=== PATIENT | male | born 1985 | race African-American/Black ===

== ENCOUNTER 2017-06-13 | Emergency (ER) | payer SELFPAY ==
--- NOTE | 2017-06-13 09:02 | ER ---
Nurse's Notes [facility] Name: Mejia Butler Age: 32 yrs Sex: Male : 1985 Arrival Date: 06/13/2017 Time: 08:26 Bed 15 Private MD: Diagnosis: Dental caries Presentation: 06/13 08:32 Presenting complaint: Patient states: has had bad toothache on left lower area X 3 iw days, just moved to [place], has not set up dentist in area, was supposed to have tooth pulled before he moved here. Transition of care: patient was not received from another setting of care. Onset of symptoms was June 10, 2017. Care prior to arrival: None. 08:32 Method Of Arrival: Ambulatory iw 08:32 Acuity: JUAN 4 iw Triage Assessment: 08:39 General: Appears in no apparent distress. uncomfortable, Behavior is calm, cooperative, hj appropriate for age. Pain: Complains of pain in tooth. EENT: Reports pain in L lower tooth. Historical: - Allergies: 08:33 NKA; iw - Home Meds: 08:33 None [Active]; iw - PMHx: 08:33 None; iw - PSHx: 08:33 None; iw - Immunization history:: Adult Immunizations not up to date. - Social history:: Smoking status: Patient uses tobacco products, smokes one-half pack cigarettes per day. Screenin:39 Abuse screen: Denies threats or abuse. Denies injuries from another. Nutritional hj screening: No deficits noted. Tuberculosis screening: No symptoms or risk factors identified. Fall Risk None identified. Vital Signs: 08:33 BP 119 / 73; Pulse 83; Resp 16; Temp 98.2; Pulse Ox 99% on R/A; Weight 77.11 kg; Height iw 5 ft. 7 in. (170.18 cm); Pain 10/10; 08:33 Body Mass Index 26.63 (77.11 kg, 170.18 cm) iw ED Course: 08:26 Patient arrived in ED. rg4 08:33 Triage completed. iw 08:33 Arm band placed on. iw 08:34 Rodrick Garsia NP is PHCP. pm1 08:34 Jose Antonio Monreal MD is Attending Physician. pm1 08:38 Jerry Newman, SUSHANT is Primary Nurse. hj 08:39 Patient has correct armband on for positive identification. Placed in gown. Bed in low hj position. Call light in reach. Side rails up X 1. 09:13 No provider procedures requiring assistance completed. Patient did not have IV access hj during this emergency room visit. Administered Medications: No medications were administered Outcome: 09:02 Discharge ordered by . pm1 09:14 Discharged to home ambulatory. hj 09:14 Condition: stable 09:14 Discharge instructions given to patient, Instructed on discharge instructions, follow up and referral plans. medication usage, Demonstrated understanding of instructions, follow-up care, medications, Prescriptions given X 2. 09:15 Patient left the ED. hj Signatures: Anushka Phillips RN RN iw Jerry Newman RN RN hj Marinas, Patrick, TEN [employer]ER[employer] TEACHER pm1 Keiko Linn rg4
--- NOTE | 2017-06-13 09:02 | EDPHYS ---
Physician Documentation [facility] Name: Mejia Butler Age: 32 yrs Sex: Male : 1985 Arrival Date: 06/13/2017 Time: 08:26 Bed 15 Private MD: ED Physician Jose Antonio Monreal HPI: 06/13 08:55 This 32 yrs old Black Male presents to ER via Ambulatory with complaints of Toothache. pm1 08:55 The patient presents with broken tooth/teeth, pain. The problem is located in the lower pm1 right third molar. Onset: The symptoms/episode began/occurred tooth has been fractured with cavities for 1 year. Pain for the last three days. Duration: The symptoms are continuous. Modifying factors: The symptoms are alleviated by nothing, the symptoms are aggravated by chewing, food. Associated signs and symptoms: Pertinent positives: pain, Pertinent negatives: fever, inability to eat, nausea, redness in area, swelling, vomiting. Severity of symptoms: in the emergency department the symptoms are actually worse. The patient has not recently seen a physician, and does not have an established primary care provider, just moved to [facility]. Historical: - Allergies: 08:33 NKA; iw - Home Meds: 08:33 None [Active]; iw - PMHx: 08:33 None; iw - PSHx: 08:33 None; iw - Immunization history:: Adult Immunizations not up to date. - Social history:: Smoking status: Patient uses tobacco products, smokes one-half pack cigarettes per day. ROS: 08:55 Constitutional: Negative for fever, chills, and weight loss, Eyes: Negative for injury, pm1 pain, redness, and discharge. 08:55 Neck: Negative for injury, pain, and swelling, Cardiovascular: Negative for chest pain, palpitations, and edema, Respiratory: Negative for shortness of breath, cough, wheezing, and pleuritic chest pain, Abdomen/GI: Negative for abdominal pain, nausea, vomiting, diarrhea, and constipation, Back: Negative for injury and pain, MS/Extremity: Negative for injury and deformity, Skin: Negative for injury, rash, and discoloration, Neuro: Negative for headache, weakness, numbness, tingling, and seizure. 08:55 ENT: Positive for dental pain, Negative for ear pain, sore throat. Exam: 08:55 Constitutional: This is a well developed, well nourished patient who is awake, alert, pm1 and in no acute distress. Head/Face: Normocephalic, atraumatic. Eyes: Pupils equal round and reactive to light, extra-ocular motions intact. Lids and lashes normal. Conjunctiva and sclera are non-icteric and not injected. Cornea within normal limits. Periorbital areas with no swelling, redness, or edema. 08:55 Neck: Trachea midline, no thyromegaly or masses palpated, and no cervical lymphadenopathy. Supple, full range of motion without nuchal rigidity, or vertebral point tenderness. No Meningismus. Chest/axilla: Normal chest wall appearance and motion. Nontender with no deformity. No lesions are appreciated. Cardiovascular: Regular rate and rhythm with a normal S1 and S2. No gallops, murmurs, or rubs. Normal PMI, no JVD. No pulse deficits. Respiratory: Lungs have equal breath sounds bilaterally, clear to auscultation and percussion. No rales, rhonchi or wheezes noted. No increased work of breathing, no retractions or nasal flaring. Back: No spinal tenderness. No costovertebral tenderness. Full range of motion. Skin: Warm, dry with normal turgor. Normal color with no rashes, no lesions, and no evidence of cellulitis. MS/ Extremity: Pulses equal, no cyanosis. Neurovascular intact. Full, normal range of motion. 08:55 ENT: External ear(s): are unremarkable, Ear canal(s): are normal, TM's: are normal, Nose: is normal, Mouth: Lips: normal, moist, Oral mucosa: normal, pink and intact, Gums: normal with healthy appearance, Tongue: is normal, abscess, is not appreciated, No trismus, Posterior pharynx: is normal, Airway: normal, no evidence of obstruction, patent, Tonsils: are normal in appearance, Uvula: normal, midline, non-edematous, no erythema, Dental exam: fractured teeth are noted, specifically the lower right third molar (#32), pain, specifically in the lower right third molar (#32). 08:55 Neuro: Orientation: is normal, Motor: is normal, moves all fours, Gait: is steady, at a normal pace, without difficulty. Vital Signs: 08:33 BP 119 / 73; Pulse 83; Resp 16; Temp 98.2; Pulse Ox 99% on R/A; Weight 77.11 kg; Height iw 5 ft. 7 in. (170.18 cm); Pain 10/10; 08:33 Body Mass Index 26.63 (77.11 kg, 170.18 cm) iw MDM: 08:35 Patient medically screened. [facility] 09:01 Data reviewed: vital signs. Data interpreted: Pulse oximetry: on room air is 99 %. pm1 Interpretation: normal. Counseling: I had a detailed discussion with the patient and/or guardian regarding: the historical points, exam findings, and any diagnostic results supporting the discharge/admit diagnosis, the need for outpatient follow up, for definitive care, a dentist, to return to the emergency department if symptoms worsen or persist or if there are any questions or concerns that arise at home. Administered Medications: No medications were administered Disposition: 16:15 Co-signature as Attending Physician, Jose Antonio Monreal MD I agree with the assessment and [facility] plan of care. Disposition: 06/13/17 09:02 Discharged to Home. Impression: Dental caries. - Condition is Stable. - Discharge Instructions: Dental Pain. - Prescriptions for Amoxicillin 500 mg Oral Capsule - take 1 capsule by ORAL route every 8 hours for 10 days; 30 tablet. Tramadol 50 mg Oral Tablet - take 1 tablet by ORAL route every 8 hours as needed; 12 tablet. - Medication Reconciliation Form, Thank You Letter, Antibiotic Education, Prescription Opioid Use form. - Follow up: Emergency Department; When: As needed; Reason: Worsening of condition. Follow up: Private Physician; When: 2 - 3 days; Reason: Recheck today's complaints, Continuance of care, Re-evaluation by your physician. - Problem is new. - Symptoms have improved. Signatures: Jose Antonio Monreal MD MD cha Williams, Irene RN RN Jerry Frazier RN RN hj Marinas, Patrick, TEN RECAPPER pm1
== END 2017-06-13 09:15 | disposition home or self-care (01) ==
CPT/HCPCS: 99282